=== PATIENT | female | born 1975 | race Caucasian/White ===

== ENCOUNTER 2017-10-15 04:00 | Emergency (ER) | payer OTHER ==
[~2017-10-15] VITALS: Ht 154.9 cm; Wt 98.1 kg
[~2017-10-15 04:00] MED LIST: ALBU0.099 IH
[2017-10-15 04:06] VITALS: BP 118/77
--- NOTE | 2017-10-15 04:13 | NUR ---
TO ER BED 11
--- NOTE | 2017-10-15 04:16 | NUR ---
Pt came to ED c/o severe headache. Pt states she has a Hx of migranes. Pt woke up at 0100 with severe CAM[place]O, N/V, and sevsitvity to light. VSS. No N/V at this time. Pt in bed in POC. ER MD aware. Continue to monitor.
[2017-10-15] MEDS ORDERED: diphenhydrAMINE 50 MG/ML VIAL IM ONE (04:20)
[2017-10-15] MEDS ORDERED: PROCHLORPERAZINE 10 MG/2 ML VIAL IM ONE (04:20)
--- NOTE | 2017-10-15 04:40 | NUR ---
Pt escorted to CT via wheel chair and Tech
--- NOTE | 2017-10-15 04:52 | NUR ---
Pt returned from CT
[2017-10-15] MEDS ORDERED: HYDROmorphone PFS 2 MG/ML SYR IM ONE ×2 (05:25→05:50)
--- NOTE | 2017-10-15 05:36 | NUR ---
Pt continues to c/o 10/10 headache pain. Dilaudid administered per Dr Damon's orders. Pt in bed in poc with HOB elevated. Father at bedside for support. VSS. Continue to monitor.
--- NOTE | 2017-10-15 05:51 | NUR ---
Pt states pain has diminished to 6/10. Dr Damon at bedside. Continue to monitor.
[2017-10-15 06:16] VITALS: BP 112/66
--- NOTE | 2017-10-15 06:16 | NUR ---
Patient discharged with v/s stable with pain reduced. Pt denies light sensitivity and no N/V. Written and verbal after care instructions given and explained. Patient alert, oriented and verbalized understanding of instructions. Ambulatory with steady gait. All questions addressed prior to discharge. ID band removed. Patient advised to follow up with PMD. Rx of Zofran and [place] 5-325mg given. Patient educated on indication of medication including possible reaction and side effects. Opportunity to ask questions provided and answered.
--- NOTE | 2017-10-15 06:16 | NUR ---
Pt states pain has reduced to 4/10 and tolerable.
== END 2017-10-15 06:16 | disposition home or self-care (01) ==
LOC: MED 04:00
DX: G43.909 Migraine, unspecified, not intractable, without status migrainosus (principal); J45.909 Unspecified asthma, uncomplicated; Z79.899 Other long term (current) drug therapy; Z88.5 Allergy status to narcotic agent
CPT/HCPCS: 70450; 81025; 96372; 99284; J0780; J1170; J1200

== ENCOUNTER 2018-08-08 06:30 | Emergency (ER) | payer OTHER ==
[~2018-08-08] VITALS: Ht 152.4 cm; Wt 98.4 kg
[2018-08-08 06:41] VITALS: BP 108/67
[2018-08-08] MEDS: diphenhydrAMINE 50 MG/ML VIAL IM ONE (07:17)
[2018-08-08] MEDS: PROCHLORPERAZINE 10 MG/2 ML VIAL IM ONE (07:18)
[2018-08-08 08:06] VITALS: BP 108/67
== END 2018-08-08 08:07 | disposition home or self-care (01) ==
LOC: MED 06:30
DX: G43.909 Migraine, unspecified, not intractable, without status migrainosus (principal); Z88.5 Allergy status to narcotic agent; Z79.899 Other long term (current) drug therapy; J45.909 Unspecified asthma, uncomplicated
CPT/HCPCS: 81002; 81025; 96372; 99283; J0780; J1200

== ENCOUNTER 2018-11-22 20:47 | Emergency (ER) | payer OTHER ==
[~2018-11-22] VITALS: Ht 152.4 cm; Wt 97.1 kg
[2018-11-22 20:55] VITALS: BP 108/65
--- NOTE | 2018-11-22 22:43 | NUR ---
PT BROUGHT TO BED 12.
--- NOTE | 2018-11-22 22:43 | NUR ---
PT PRESENTS TO ED WITH C/O COUGH X 2 WEEKS. NON-PRODUCTIVE COUGH NOTED WITH DIMINSHED BREATH SOUNDS. PT C/O PAIN 8/10. PT SITTING IN BED, BEDRAILS UP X 2, MD MADE AWARE.
--- NOTE | 2018-11-23 00:12 | NUR ---
Patient discharged with v/s stable. Written and verbal after care instructions given and explained. Patient alert, oriented and verbalized understanding of instructions. Ambulatory with steady gait. All questions addressed prior to discharge. ID band removed. Patient advised to follow up with PMD. Rx of Azithromycin (Z-Kelvin) given. Patient educated on indication of medication including possible reaction and side effects. Opportunity to ask questions provided and answered.
[2018-11-23 00:18] VITALS: BP 110/62
== END 2018-11-23 00:12 | disposition home or self-care (01) ==
LOC: MED 20:47
DX: J40 Bronchitis, not specified as acute or chronic (principal); J45.909 Unspecified asthma, uncomplicated; Z88.5 Allergy status to narcotic agent; Z79.899 Other long term (current) drug therapy
CPT/HCPCS: 71045; 81002; 81025; 99283; Q0092

== ENCOUNTER 2019-02-17 19:38 | Emergency (ER) | payer OTHER ==
[~2019-02-17] VITALS: Ht 152.4 cm; Wt 96.6 kg
[2019-02-17 19:48] VITALS: BP 121/74
--- NOTE | 2019-02-17 19:59 | NUR ---
PT AMBULATED BACK TO THE LOBBY, ERANS
--- NOTE | 2019-02-17 20:11 | NUR ---
Pt taken to bed 11.
--- NOTE | 2019-02-17 20:28 | NUR ---
43 Y/O F PRESENTED TO ED WITH C/O HEADACHE X1 DAY. PER PT "I SUFFER FROM MIGRAINES BUT THIS ISNT THE SAME." GENERALIZED HEADACHE. 10/10 PAIN, POUNDING TO R SIDE MORE THAN L SIDE. C/O R SIDE FACIAL NUMBNESS. +N/V. NO VISION CHANGES. AAOX4. SPEECH CLEAR AND COMPREHENSIBLE. GCS 15. BEHAVIOR CALM AND APPROPIATE. ERMD NOTIFIED. WILL CONTINUE TO MONITOR.
[2019-02-17] MEDS ORDERED: ONDANSETRON 4 MG TAB PO ONE (21:40)
[2019-02-17] MEDS ORDERED: NACL 0.9% 1,000 ML IV ONE (21:40)
[2019-02-17] MEDS ORDERED: LIDOCAINE/EPI 1% 1:100000 20 ML VIAL INJ ONE (21:55)
[2019-02-17 22:05] LABS: BASOPHILS # (AUTO) 0.1 K/uL (0.00-0.22); BASOPHILS % (AUTO) 0.7 % (0.0-2.0); EOSINOPHILS # (AUTO) 0.1 K/uL (0-0.4); EOSINOPHILS % (AUTO) 1.3 % (0.0-4.0); HEMATOCRIT 36.9 % (36-48); HEMOGLOBIN 12.6 g/dL (12.0-16.0); LYMPHOCYTES # (AUTO) 1.5 K/uL (2.5-16.5); LYMPHOCYTES % (AUTO) 21.2 % (20.5-51.1); MEAN CORPUSCULAR HEMOGLOBIN 32 pg (27-31); MEAN CORPUSCULAR HGB CONC 34 g/dL (33-37); MEAN CORPUSCULAR VOLUME 93.3 fL (80-94); MONOCYTES # (AUTO) 0.6 K/uL (0.8-1.0); NEUTROPHILS # (AUTO) 4.9 K/uL (1.8-7.7); NEUTROPHILS % (AUTO) 67.8 % (42.2-75.2); PLATELET COUNT (AUTO) 320 K/uL (140-450); RED BLOOD CELL COUNT(AUTO) 3.96 MIL/uL (4.20-5.40); RED CELL DISTRIBUTION WIDTH 13.1 % (11.6-13.7); WHITE BLOOD COUNT (AUTO) 7.2 K/uL (4.8-10.8)
--- NOTE | 2019-02-17 22:06 | NUR ---
PT DRYHEAVING AND HYPERVENTILATING. PT STATED "ITS HARD TO BREATHE". O2 SATURATION AT 93%. O2 THERAPY INITATED. PT PLACED ON 2L O2 VIA NASAL CANNULA, O2 SATURATION AT 96%. WILL CONTINUE TO MONITOR.
[2019-02-17 22:12] LABS: ANION GAP 14.8 (8-16); CREATININE 1.3 mg/dL (0.6-1.3); POTASSIUM 3.8 mmol/L (3.5-5.1)
[2019-02-17 22:16] LABS: PROTHROMBIN TIME 9.6 secs (10.8-13.4)
[2019-02-17 22:17] LABS: ALBUMIN 4.1 g/dL (3.4-5.0); TOTAL BILIRUBIN 0.5 mg/dL (0.0-1.0)
--- NOTE | 2019-02-17 22:20 | NUR ---
PT CONTINOUS TO HAVE HEADACHE. [address] QURESHI MADE AWARE.
--- NOTE | 2019-02-17 22:25 | NUR ---
PT TAKEN TO CT
[2019-02-17] MEDS ORDERED: MORPHINE SULFATE 4 MG/ML SYR IVP ONE (22:45)
[2019-02-17] MEDS ORDERED: ONDANSETRON 4 MG/2 ML VIAL IVP ONE (23:25)
[2019-02-17] MEDS ORDERED: LORazepam 2 MG/ML VIAL IVP ONE (23:25)
[2019-02-17] MEDS ORDERED: MECLIZINE 25 MG TAB PO ONE (23:25)
--- NOTE | 2019-02-18 00:09 | NUR ---
LUMBR PUNCTURE PROCEDURE PERFORMED AT THIS TIME
--- NOTE | 2019-02-18 00:34 | NUR ---
LUMBAR PUNCTURE WAS DONE UNSUCCESSFUL, BY DR. DEGROOT
[2019-02-18] MEDS ORDERED: METOCLOPRAMIDE 10 MG/2 ML INJ VIAL IVP ONE (00:35)
[2019-02-18] MEDS ORDERED: diphenhydrAMINE 50 MG/ML VIAL IVP ONE (00:35)
--- NOTE | 2019-02-18 00:50 | NUR ---
PT AWAKE. VSS AT THIS TIME. HOB ELEVATED FOR COMFORT. FAMILY AT BEDSIDE. WILL CONTINUE TO MONITOR.
--- NOTE | 2019-02-18 02:20 | NUR ---
PT TAKEN TO CT VIA W/C
[2019-02-18] MEDS ORDERED: IBUP-1842 PO (03:12)
[2019-02-18] MEDS ORDERED: ESCI20TA PO (03:12)
--- NOTE | 2019-02-18 03:25 | NUR ---
PT BP TREDNING LOW. FIRST READING BP 89/46 AND REPEAT 82/52. DR. QURESHI MADE AWARE.
--- NOTE | 2019-02-18 05:25 | NUR ---
Patient discharged with v/s stable. Patient acting appropriatly, speaking in clear and complete sentences, states 0/10 pain at this time. Written and verbal after care instructions given and explained. Patient alert, oriented and verbalized understanding of instructions. Ambulatory with steady gait. All questions addressed prior to discharge. ID band removed. Patient advised to follow up with PMD. Rx of [place], and Reglan given. Patient educated on indication of medication including possible reaction and side effects. Opportunity to ask questions provided and answered.
[2019-02-18 05:36] VITALS: BP 97/46
== END 2019-02-18 05:25 | disposition home or self-care (01) ==
LOC: MED 19:38
DX: G43.909 Migraine, unspecified, not intractable, without status migrainosus (principal); R42 Dizziness and giddiness; R11.2 Nausea with vomiting, unspecified; J45.909 Unspecified asthma, uncomplicated; Z79.1 Long term (current) use of non-steroidal anti-inflammatories (NSAID); Z79.899 Other long term (current) drug therapy
CPT/HCPCS: 36415; 62270; 70450; 80053; 81025; 85025; 85610; 85730; 96361; 96374; 96375; 99285; J1200; J2001; J2060; J2270; J2405; J2765; J7030; J8597; Q0162; 99284

== ENCOUNTER 2020-04-15 07:00 | Emergency (ER) | payer OTHER ==
[~2020-04-15] VITALS: Ht 152.4 cm; Wt 93.9 kg
[~2020-04-15 07:00] MED LIST changes: -ALBU0.099 IH; +ESCI20TA PO; +IBUP-1842 PO
[2020-04-15 07:04] VITALS: BP 137/94
[2020-04-15] MEDS ORDERED: NACL 0.9% 1,000 ML IV SCH (07:27)
[2020-04-15] MEDS ORDERED: KETOROLAC 30 MG/ML VIAL IVP ONE (07:30)
[2020-04-15 08:29] LABS: BASOPHILS % (AUTO) 0.5 % (0.0-2.0); EOSINOPHILS # (AUTO) 0.1 K/uL (0-0.4); EOSINOPHILS % (AUTO) 1.2 % (0.0-4.0); HEMATOCRIT 39.6 % (36-48); HEMOGLOBIN 13.5 g/dL (12.0-16.0); LYMPHOCYTES # (AUTO) 1.2 K/uL (2.5-16.5); LYMPHOCYTES % (AUTO) 14.4 % (20.5-51.1); MEAN CORPUSCULAR HEMOGLOBIN 32 pg (27-31); MEAN CORPUSCULAR HGB CONC 34 g/dL (33-37); MEAN CORPUSCULAR VOLUME 95.3 fL (80-94); MONOCYTES # (AUTO) 0.6 K/uL (0.8-1.0); NEUTROPHILS # (AUTO) 6.6 K/uL (1.8-7.7); NEUTROPHILS % (AUTO) 76.9 % (42.2-75.2); PLATELET COUNT (AUTO) 313 K/uL (140-450); RED BLOOD CELL COUNT(AUTO) 4.15 MIL/uL (4.20-5.40); WHITE BLOOD COUNT (AUTO) 8.5 K/uL (4.8-10.8)
[2020-04-15 08:30] LABS: APPEARANCE,URINE SL CLOUDY (CLEAR); BILIRUBIN,URINE NEGATIVE (NEGATIVE); BLOOD, URINE 1+ (NEGATIVE); COLOR,URINE YELLOW (YELLOW); LEUKOCYTE ESTERASE ,URINE TRACE (NEGATIVE); NITRITE, URINE NEGATIVE (NEGATIVE); PH,URINE 6.5 (5.0-9.0); UGLUCOSE NEGATIVE (NEGATIVE)
[2020-04-15] MEDS ORDERED: MORPHINE SULFATE 4 MG/ML SYR IVP ONE (09:00)
[2020-04-15 09:22] LABS: WBC,URINE 0-5 /HPF (0-5)
[2020-04-15 09:51] LABS: ALBUMIN 3.7 g/dL (3.4-5.0); ANION GAP 14.1 (8-16); CARBON DIOXIDE 24.5 mmol/L (21-32); CREATININE 0.9 mg/dL (0.6-1.3); POTASSIUM 3.6 mmol/L (3.5-5.1); TOTAL BILIRUBIN 0.5 mg/dL (0.0-1.0)
[2020-04-15 10:08] VITALS: BP 96/67
== END 2020-04-15 10:03 | disposition home or self-care (01) ==
LOC: MED 07:00
DX: K57.92 Diverticulitis of intestine, part unspecified, without perforation or abscess without bleeding (principal); J45.909 Unspecified asthma, uncomplicated; Z88.5 Allergy status to narcotic agent; Z98.890 Other specified postprocedural states; Z90.49 Acquired absence of other specified parts of digestive tract
CPT/HCPCS: 36415; 74176; 80053; 81001; 81025; 83690; 85025; 96361; 96374; 96375; 99284; J1885; J2270; J7030

== ENCOUNTER 2020-10-20 09:49 | Emergency (ER) | payer OTHER ==
[~2020-10-20] VITALS: Ht 152.4 cm; Wt 91.2 kg
[~2020-10-20 09:49] MED LIST changes: +ACET-1182 PO; -IBUP-1842 PO; +LACT1CAP59 PO; +LEVO750T2 PO; +METR-520 PO
[2020-10-20 09:52] VITALS: BP 98/69
[2020-10-20] MEDS ORDERED: ONDANSETRON 4 MG/2 ML VIAL IVP ONE (10:10)
[2020-10-20] MEDS ORDERED: MORPHINE SULFATE 4 MG/ML SYR IVP ONE (10:10)
[2020-10-20] MEDS ORDERED: NACL 0.9% 1,000 ML IV ONE (10:10)
[2020-10-20 10:45] LABS: BASOPHILS % (AUTO) 0.8 % (0.0-2.0); EOSINOPHILS # (AUTO) 0.1 K/uL (0-0.4); EOSINOPHILS % (AUTO) 2.6 % (0.0-4.0); HEMATOCRIT 37.2 % (36-48); HEMOGLOBIN 12.6 g/dL (12.0-16.0); LYMPHOCYTES # (AUTO) 1.7 K/uL (2.5-16.5); LYMPHOCYTES % (AUTO) 32.4 % (20.5-51.1); MEAN CORPUSCULAR HEMOGLOBIN 32 pg (27-31); MEAN CORPUSCULAR HGB CONC 34 g/dL (33-37); MEAN CORPUSCULAR VOLUME 94.4 fL (80-94); MONOCYTES # (AUTO) 0.3 K/uL (0.8-1.0); MONOCYTES % (AUTO) 5.3 % (1.7-9.3); NEUTROPHILS # (AUTO) 3.1 K/uL (1.8-7.7); NEUTROPHILS % (AUTO) 58.9 % (42.2-75.2); PLATELET COUNT (AUTO) 467 K/uL (140-450); RED BLOOD CELL COUNT(AUTO) 3.94 MIL/uL (4.20-5.40); RED CELL DISTRIBUTION WIDTH 12.6 % (11.6-13.7); WHITE BLOOD COUNT (AUTO) 5.2 K/uL (4.8-10.8)
[2020-10-20 11:01] LABS: ALBUMIN 3.8 g/dL (3.4-5.0); ANION GAP 11.7 (8-16); CARBON DIOXIDE 26.8 mmol/L (21-32); CREATININE 0.9 mg/dL (0.6-1.3); POTASSIUM 4.5 mmol/L (3.5-5.1); TOTAL BILIRUBIN 0.3 mg/dL (0.0-1.0)
--- NOTE | 2020-10-20 12:13 | NUR ---
Patient taken to CT via maty
[2020-10-20 14:33] VITALS: BP 105/68
--- NOTE | 2020-10-20 14:34 | NUR ---
Patient discharged with v/s stable. Written and verbal after care instructions given and explained. Patient alert, oriented and verbalized understanding of instructions. Ambulatory with steady gait. All questions addressed prior to discharge. ID band removed. Patient advised to follow up with PMD. Rx of MORPHINE , CEPHALEXIN given. Patient educated on indication of medication including possible reaction and side effects. Opportunity to ask questions provided and answered.
--- NOTE | 2020-10-21 20:47 | NUR ---
LATE ENTRY- 0.9% NS BOLUS DISCONTINUED AT 1130
== END 2020-10-20 14:34 | disposition home or self-care (01) ==
LOC: MED 09:49
DX: R10.31 Right lower quadrant pain (principal); R11.0 Nausea; R07.2 Precordial pain; J45.909 Unspecified asthma, uncomplicated; Z79.899 Other long term (current) drug therapy; Z88.5 Allergy status to narcotic agent
CPT/HCPCS: 36415; 71045; 74177; 80053; 81002; 81025; 84484; 85025; 93005; 96361; 96374; 96375; 99285; J2270; J2405; J7030; Q9967

== ENCOUNTER 2020-10-21 10:38 | Emergency (ER) | payer OTHER ==
[~2020-10-21] VITALS: Ht 152.4 cm; Wt 91.2 kg
[2020-10-21 10:46] VITALS: BP 107/79
[2020-10-21] MEDS ORDERED: ONDANSETRON 4 MG ODT PO ONE (11:25)
--- NOTE | 2020-10-21 11:47 | NUR ---
Patient discharged with v/s stable, AAOX4, IN NAD. Written and verbal after care instructions given and explained. Patient alert, oriented and verbalized understanding of instructions. Ambulatory with steady gait. All questions addressed prior to discharge. ID band removed, NO IV ACCESS THIS VISIT. Patient advised to follow up with PMD. Rx of ZOFRAN given. Patient educated on indication of medication including possible reaction and side effects. Opportunity to ask questions provided and answered.
== END 2020-10-21 11:47 | disposition home or self-care (01) ==
LOC: MED 10:38
DX: T81.89XA Other complications of procedures, not elsewhere classified, initial encounter (principal); J45.909 Unspecified asthma, uncomplicated; Z88.5 Allergy status to narcotic agent; Z79.899 Other long term (current) drug therapy
CPT/HCPCS: 81002; 93005; 99283; Q0162

== ENCOUNTER 2020-11-03 05:40 | Emergency (ER) | payer OTHER ==
[~2020-11-03] VITALS: Ht 152.4 cm; Wt 90.7 kg
[2020-11-03 05:48] VITALS: BP 104/66
[2020-11-03] MEDS ORDERED: ONDANSETRON 4 MG/2 ML VIAL IVP ONE ×2 (06:20→06:50)
[2020-11-03] MEDS ORDERED: DICYCLOMINE HCL LIQUID 20 MG, ALUMINUM HYD/MAG/SIMETHICONE 30 ML, LIDOCAINE VISCOUS 2% ... PO ONE ×3 (06:20)
[2020-11-03] MEDS ORDERED: LIDOCAINE VISCOUS 2% 20 ML UDC ONE (06:23)
[2020-11-03] MEDS ORDERED: ALUMINUM HYD/MAG/SIMETHICONE 30 ML UDC ONE (06:24)
[2020-11-03] MEDS ORDERED: DICYCLOMINE HCL LIQUID 10 MG/5 ML UDC ONE (06:24)
--- NOTE | 2020-11-03 06:46 | NUR ---
PT COMING IN WITH C/O SEVERE ABD PAIN TO EPIGASTRIC AREA; BURNING, STABBING 10/10 PAIN. HAS VOMITED X 5 OVER THE PAST HOUR. DENIES ANY DIARRHEA. ABD TENDER UPON PALPATION. PT AFEBRILE. PT PLACED IN GOWN, BED IN LOWEST POSITION AND SIDERAIL UP X 1. ALLERGY - CODEINE
[2020-11-03] MEDS ORDERED: MORPHINE SULFATE 4 MG/ML SYR ONE (06:48)
[2020-11-03] MEDS ORDERED: MORPHINE SULFATE 4 MG/ML SYR IVP ONE (06:50)
[2020-11-03] MEDS ORDERED: LORazepam 2 MG/ML VIAL IVP ONE (07:05)
--- NOTE | 2020-11-03 07:13 | NUR ---
Pt report given to RC HERNANDEZ. Transfer of care at this time.
[2020-11-03 07:20] LABS: BASOPHILS % (AUTO) 0.6 % (0.0-2.0); EOSINOPHILS # (AUTO) 0.1 K/uL (0-0.4); EOSINOPHILS % (AUTO) 1.5 % (0.0-4.0); HEMATOCRIT 38.5 % (36-48); HEMOGLOBIN 12.9 g/dL (12.0-16.0); LYMPHOCYTES # (AUTO) 2.1 K/uL (2.5-16.5); LYMPHOCYTES % (AUTO) 38.4 % (20.5-51.1); MEAN CORPUSCULAR HEMOGLOBIN 32 pg (27-31); MEAN CORPUSCULAR HGB CONC 34 g/dL (33-37); MEAN CORPUSCULAR VOLUME 94.4 fL (80-94); MONOCYTES # (AUTO) 0.4 K/uL (0.8-1.0); MONOCYTES % (AUTO) 8.2 % (1.7-9.3); NEUTROPHILS # (AUTO) 2.8 K/uL (1.8-7.7); NEUTROPHILS % (AUTO) 51.3 % (42.2-75.2); PLATELET COUNT (AUTO) 328 K/uL (140-450); RED BLOOD CELL COUNT(AUTO) 4.08 MIL/uL (4.20-5.40); RED CELL DISTRIBUTION WIDTH 13.2 % (11.6-13.7); WHITE BLOOD COUNT (AUTO) 5.4 K/uL (4.8-10.8)
[2020-11-03 07:21] LABS: APPEARANCE,URINE HAZY (CLEAR); BILIRUBIN,URINE NEGATIVE (NEGATIVE); COLOR,URINE DARK YELLOW (YELLOW); LEUKOCYTE ESTERASE ,URINE NEGATIVE (NEGATIVE); NITRITE, URINE NEGATIVE (NEGATIVE); UGLUCOSE NEGATIVE (NEGATIVE)
--- NOTE | 2020-11-03 07:30 | NUR ---
45F PMH of anxiety, colon resection (1 month ago), appendectomy, cholescystectomy c/o nonradiating 06/19 burning upper epigastric pain x2 hours. Pt is resting semifowlers eyes open on gurney, crying. Denies fever, cough, SOB CP urinary/bowel issues at this time. Reports nausea with vomiting x5. Denies hematemesis, hematuria, dysuria, melena, diarrhea. A&O x3, speaks in full clear sentences, follows commands. no AMU, repirations E/U. MCCLELLAN. IV access is 22g R hand. pending lab results and further orders
[2020-11-03 07:33] LABS: ALBUMIN 4.3 g/dL (3.4-5.0); ANION GAP 16.6 (8-16); CREATININE 0.9 mg/dL (0.6-1.3); POTASSIUM 3.6 mmol/L (3.5-5.1); TOTAL BILIRUBIN 0.4 mg/dL (0.0-1.0)
[2020-11-03 07:47] LABS: BLOOD, URINE 1+ (NEGATIVE); RBC,URINE 0-5 /HPF (0-5)
[2020-11-03 07:48] LABS: WBC,URINE 0-5 /HPF (0-5)
[2020-11-03] MEDS ORDERED: METOCLOPRAMIDE 10 MG/2 ML INJ VIAL IVP ONE (08:15)
[2020-11-03] MEDS ORDERED: NACL 0.9% 1,000 ML IV ONE (08:30)
--- NOTE | 2020-11-03 09:41 | NUR ---
Pt resting semifowlers eyes closed arousable to voice. Pt looks relaxed at this time. Pt reports 8/10 upper epigastric burning pain at this time. Pt denies any CP at this time. Currently no SOB CP acute changes noted at this time. A&O x3, speaks in full clear sentences, follows commands. No AMU, respirations E/U. MCCLELLAN 22ga R hand patent, IV fluids running. Pt tolerated placement of ultrasound guided 18ga to Left upper arm well Pending Ct, repeat trop and further orders
--- NOTE | 2020-11-03 09:55 | NUR ---
Lab called for aracelis cedeño
--- NOTE | 2020-11-03 10:03 | NUR ---
Lab at bedside for blood draw.
[2020-11-03 11:39] VITALS: BP 112/55
--- NOTE | 2020-11-03 11:40 | NUR ---
Pt resting comfortably eyes closed arousable to voice. Reports 8/10 epigastric pain at this time. Denies SOB CP at this time. A&O x3, speaks in full clear sentences, follows commands. No AMU, respirations E/U. MCCLELLAN Pt ambulated to bathroom with steady gait. Pending CT and further orders
--- NOTE | 2020-11-03 13:18 | NUR ---
Patient discharged with v/s stable. Both IV's removed. No new Rx. Written and verbal after care instructions given and explained. Patient verbalized understanding. Ambulatory with steady gait. All questions addressed prior to discharge. Advised to follow up with PMD. No belnongings to be returned. Pt took all personal belongings with her
--- NOTE | 2020-11-04 20:01 | NUR ---
LATE ENTRY-- 0.9% NS INFUSION ENDED AT 1000
== END 2020-11-03 13:18 | disposition home or self-care (01) ==
LOC: MED 05:40
DX: R10.13 Epigastric pain (principal); R11.2 Nausea with vomiting, unspecified; J45.909 Unspecified asthma, uncomplicated; Z88.5 Allergy status to narcotic agent; Z79.899 Other long term (current) drug therapy
CPT/HCPCS: 36415; 71045; 74177; 80053; 81001; 83690; 84484; 85025; 85379; 93005; 96361; 96374; 96375; 96376; 99285; J2060; J2270; J2405; J2765; Q9967

== ENCOUNTER 2021-05-15 10:25 | Emergency (ER) | payer OTHER ==
[~2021-05-15] VITALS: Ht 152.4 cm; Wt 97.1 kg
[2021-05-15 10:44] VITALS: BP 92/59
--- NOTE | 2021-05-15 10:50 | NUR ---
45yo f c/o abdominal pain, vomiting, headache and dizziness since 8am this morning. abdominal pain 8/10 burning. pt reports 7 episodes of vomiting today. pt took sumatriptan 2 hours ago for headache which provided no relief. in ed, pt hypotensive. pt with active coffee-ground emesis. abdomen soft, nontender. ermd made aware of pt status. pmh: asthma, migraine, anxiety, depression meds: ventolin, lexapro allergy: codeine
[2021-05-15] MEDS ORDERED: diphenhydrAMINE 50 MG/ML VIAL IVP ONE (11:55)
[2021-05-15] MEDS ORDERED: MORPHINE SULFATE 4 MG/ML SYR IVP ONE ×2 (11:55→15:10)
[2021-05-15] MEDS ORDERED: METOCLOPRAMIDE 10 MG/2 ML INJ VIAL IVP ONE (11:55)
--- NOTE | 2021-05-15 12:19 | NUR ---
PT TAKEN TO CT VIA [place].
[2021-05-15 12:24] LABS: APPEARANCE,URINE CLEAR (CLEAR); BILIRUBIN,URINE NEGATIVE (NEGATIVE); BLOOD, URINE 1+ (NEGATIVE); COLOR,URINE YELLOW (YELLOW); LEUKOCYTE ESTERASE ,URINE NEGATIVE (NEGATIVE); NITRITE, URINE NEGATIVE (NEGATIVE); UGLUCOSE NEGATIVE (NEGATIVE)
--- NOTE | 2021-05-15 12:27 | NUR ---
PT RETURNED FROM CT SCAN
[2021-05-15 12:38] LABS: RBC,URINE 0-5 /HPF (0-5); WBC,URINE 0-5 /HPF (0-5)
[2021-05-15 14:03] LABS: BASOPHILS % (AUTO) 0.5 % (0.0-2.0); EOSINOPHILS % (AUTO) 0.1 % (0.0-4.0); HEMATOCRIT 34.2 % (36-48); HEMOGLOBIN 11.7 g/dL (12.0-16.0); LYMPHOCYTES # (AUTO) 0.8 K/uL (2.5-16.5); LYMPHOCYTES % (AUTO) 11.9 % (20.5-51.1); MEAN CORPUSCULAR HEMOGLOBIN 33 pg (27-31); MEAN CORPUSCULAR HGB CONC 34 g/dL (33-37); MEAN CORPUSCULAR VOLUME 95.1 fL (80-94); MONOCYTES # (AUTO) 0.2 K/uL (0.8-1.0); MONOCYTES % (AUTO) 2.5 % (1.7-9.3); NEUTROPHILS # (AUTO) 5.5 K/uL (1.8-7.7); PLATELET COUNT (AUTO) 360 K/uL (140-450); RED CELL DISTRIBUTION WIDTH 12.6 % (11.6-13.7); WHITE BLOOD COUNT (AUTO) 6.5 K/uL (4.8-10.8)
[2021-05-15 14:21] LABS: ALBUMIN 3.7 g/dL (3.4-5.0); ANION GAP 11.7 (8-16); CARBON DIOXIDE 26.4 mmol/L (21-32); CREATININE 0.9 mg/dL (0.6-1.3); POTASSIUM 4.1 mmol/L (3.5-5.1); TOTAL BILIRUBIN 0.2 mg/dL (0.0-1.0)
[2021-05-15] MEDS ORDERED: ACET-10509 PO (14:41)
[2021-05-15] MEDS ORDERED: KETOROLAC 15 MG/ML VIAL IVP ONE (15:10)
[2021-05-15 16:34] VITALS: BP 118/76
--- NOTE | 2021-05-15 16:34 | NUR ---
Patient discharged with v/s stable. Written and verbal after care instructions given and explained. Patient alert, oriented and verbalized understanding of instructions. Ambulatory with steady gait. All questions addressed prior to discharge. ID band removed. Patient advised to follow up with PMD. Rx of TYLENOL EXTRA STRENGTH given. Patient educated on indication of medication including possible reaction and side effects. Opportunity to ask questions provided and answered.
== END 2021-05-15 16:34 | disposition home or self-care (01) ==
LOC: MED 10:25
DX: R51.9 Headache, unspecified (principal); R11.2 Nausea with vomiting, unspecified; R10.9 Unspecified abdominal pain; R42 Dizziness and giddiness; F41.9 Anxiety disorder, unspecified; F32.9 Major depressive disorder, single episode, unspecified; G43.909 Migraine, unspecified, not intractable, without status migrainosus; J45.909 Unspecified asthma, uncomplicated; Z88.5 Allergy status to narcotic agent; Z79.899 Other long term (current) drug therapy
CPT/HCPCS: 36415; 74176; 80053; 81001; 81025; 83690; 85025; 96374; 96375; 96376; 99284; J1200; J1885; J2270; J2765

== ENCOUNTER 2021-08-29 09:16 | Emergency (ER) | payer OTHER ==
[~2021-08-29] VITALS: Ht 152.4 cm; Wt 93.0 kg
[~2021-08-29 09:16] MED LIST changes: +ACET-10509 PO
[2021-08-29 09:27] VITALS: BP 114/77
--- NOTE | 2021-08-29 10:26 | NUR ---
Pt ambulated to bed 02.
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
[2021-08-29] MEDS ORDERED: MORPHINE SULFATE 4 MG/ML SYR IVP ONE (10:40)
[2021-08-29] MEDS ORDERED: METOCLOPRAMIDE 10 MG/2 ML INJ VIAL IVP ONE (10:40)
[2021-08-29 12:11] LABS: BASOPHILS % (AUTO) 0.7 % (0.0-2.0); EOSINOPHILS # (AUTO) 0.1 K/uL (0-0.4); EOSINOPHILS % (AUTO) 0.8 % (0.0-4.0); HEMATOCRIT 32.4 % (36-48); HEMOGLOBIN 11.1 g/dL (12.0-16.0); LYMPHOCYTES # (AUTO) 1.3 K/uL (2.5-16.5); LYMPHOCYTES % (AUTO) 18.8 % (20.5-51.1); MEAN CORPUSCULAR HEMOGLOBIN 32 pg (27-31); MEAN CORPUSCULAR HGB CONC 34 g/dL (33-37); MEAN CORPUSCULAR VOLUME 92.2 fL (80-94); MONOCYTES # (AUTO) 0.3 K/uL (0.8-1.0); MONOCYTES % (AUTO) 4.3 % (1.7-9.3); NEUTROPHILS # (AUTO) 5.2 K/uL (1.8-7.7); NEUTROPHILS % (AUTO) 75.4 % (42.2-75.2); PLATELET COUNT (AUTO) 284 K/uL (140-450); RED BLOOD CELL COUNT(AUTO) 3.52 MIL/uL (4.20-5.40); RED CELL DISTRIBUTION WIDTH 13.2 % (11.6-13.7); WHITE BLOOD COUNT (AUTO) 6.8 K/uL (4.8-10.8)
[2021-08-29 12:31] LABS: ALBUMIN 3.7 g/dL (3.4-5.0); BILIRUBIN,DIRECT 0.1 mg/dL (0.0-0.3); TOTAL BILIRUBIN 0.3 mg/dL (0.0-1.0)
[2021-08-29 12:47] LABS: ANION GAP 15.1 (8-16); CARBON DIOXIDE 24.8 mmol/L (21-32); CREATININE 0.7 mg/dL (0.6-1.3); POTASSIUM 3.9 mmol/L (3.5-5.1)
[2021-08-29] MEDS ORDERED: ONDANSETRON 4 MG/2 ML VIAL IVP ONE (13:00)
[2021-08-29] MEDS ORDERED: MORPHINE SULFATE 10 MG/ML VIAL IVP ONE (13:00)
[2021-08-29] MEDS ORDERED: ALUMINUM HYD/MAG/SIMETHICONE 30 ML UDC PO ONE (13:25)
[2021-08-29] MEDS ORDERED: FAMO-90 PO (13:58)
[2021-08-29 14:15] VITALS: BP 120/72
--- NOTE | 2021-08-29 14:16 | NUR ---
Patient discharged with v/s stable. Written and verbal after care instructions given and explained. Patient alert, oriented and verbalized understanding of instructions. Ambulatory with steady gait. All questions addressed prior to discharge. ID band removed. Patient advised to follow up with PMD. Rx of FAMOTIDINE given. Patient educated on indication of medication including possible reaction and side effects. Opportunity to ask questions provided and answered.
== END 2021-08-29 14:16 | disposition home or self-care (01) ==
LOC: MED 09:16
DX: K21.9 Gastro-esophageal reflux disease without esophagitis (principal); K92.0 Hematemesis; J45.909 Unspecified asthma, uncomplicated; Z88.5 Allergy status to narcotic agent; Z90.49 Acquired absence of other specified parts of digestive tract
CPT/HCPCS: 36415; 71045; 74176; 80048; 80076; 81002; 81025; 83690; 84484; 85025; 86886; 86900; 86901; 93005; 96374; 96375; 96376; 99285; J2270; J2405; J2765; Q0092

== ENCOUNTER 2021-09-13 23:19 | Emergency (ER) | payer OTHER ==
[~2021-09-13] VITALS: Ht 152.4 cm; Wt 93.4 kg
[~2021-09-13 23:19] MED LIST changes: +FAMO-90 PO
[2021-09-13 23:42] VITALS: BP 91/67
--- NOTE | 2021-09-13 23:48 | NUR ---
PT AMBULATED TO LOBBY. PROVIDED URINE CUP
[2021-09-14] MEDS ORDERED: KETOROLAC 60 MG/2 ML VIAL IM ONE (00:10)
[2021-09-14] MEDS ORDERED: ONDANSETRON 4 MG ODT PO ONE (00:10)
[2021-09-14] MEDS ORDERED: LOPE-289 PO (00:15)
[2021-09-14] MEDS ORDERED: ONDA8TAB87 PO (00:15)
[2021-09-14] MEDS ORDERED: IBUP-2213 PO (00:15)
--- NOTE | 2021-09-14 00:30 | NUR ---
Patient discharged with v/s stable. Written and verbal after care instructions given and explained. Patient alert, oriented and verbalized understanding of instructions. Ambulatory with steady gait. All questions addressed prior to discharge. ID band removed. Patient advised to follow up with PMD. Rx of MOTRIN, LOPERAMIDE, AND ZOFRAN given. Patient educated on indication of medication including possible reaction and side effects. Opportunity to ask questions provided and answered.
== END 2021-09-14 00:30 | disposition home or self-care (01) ==
LOC: MED 23:19
DX: R10.13 Epigastric pain (principal); R11.2 Nausea with vomiting, unspecified; R19.7 Diarrhea, unspecified; J45.909 Unspecified asthma, uncomplicated; Z88.5 Allergy status to narcotic agent; Z79.899 Other long term (current) drug therapy; Z98.890 Other specified postprocedural states
CPT/HCPCS: 81002; 81025; 96372; 99283; J1885; Q0162

== ENCOUNTER 2022-01-15 12:58 | Inpatient (IN) | payer OTHER ==
[~2022-01-15] VITALS: Ht 152.4 cm; Wt 92.5 kg
[~2022-01-15 12:58] MED LIST changes: +IBUP-2213 PO; +LOPE-289 PO; +ONDA8TAB87 PO
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
[2022-01-15 13:06] VITALS: BP 128/83
--- NOTE | 2022-01-15 13:15 | NUR ---
DR TROY AT BEDSIDE EVALUATING PT
[2022-01-15] MEDS ORDERED: METOCLOPRAMIDE 10 MG/2 ML INJ VIAL IVP ONE (13:25)
[2022-01-15] MEDS ORDERED: ASPIRIN 81 MG TAB.CHEW PO ONE (13:25)
[2022-01-15] MEDS ORDERED: NITROGLYCERIN 0.4 MG TAB SL ONE (14:15)
--- NOTE | 2022-01-15 14:25 | NUR ---
PT TAKEN TO CT VIA WHEELCHAIR
[2022-01-15 14:31] LABS: HEMOGLOBIN 12.7 g/dL (12.0-16.0); MEAN CORPUSCULAR HEMOGLOBIN 31 pg (27-31); MEAN CORPUSCULAR HGB CONC 33 g/dL (33-37); MEAN CORPUSCULAR VOLUME 94.1 fL (80-94); PLATELET COUNT (AUTO) 212 K/uL (140-450); RED BLOOD CELL COUNT(AUTO) 4.04 MIL/uL (4.20-5.40); RED CELL DISTRIBUTION WIDTH 15.1 % (11.6-13.7); WHITE BLOOD COUNT (AUTO) 7.7 K/uL (4.8-10.8)
--- NOTE | 2022-01-15 14:33 | NUR ---
PT BACK FROM CT AND CONNECTED TO MONITOR
[2022-01-15 14:52] LABS: BASOPHILS % (MANUAL) 0 % (0-2); EOSINOPHILS % (MANUAL) 0 % (0-4); LYMPHOCYTES % (MANUAL) 26 % (20-46); MONOCYTES % (MANUAL) 2 % (5-12)
[2022-01-15 15:05] LABS: ALBUMIN 3.6 g/dL (3.4-5.0); ANION GAP 15.6 (8-16); ASPARTATE AMINOTRANSFERASE 39 U/L (15-37); CARBON DIOXIDE 21.5 mmol/L (21-32); CHLORIDE 110 mmol/L (98-107); CREATININE 0.7 mg/dL (0.6-1.3); GFR ARICAN-AMERICAN 115 mL/min (>90); GLUCOSE 104 mg/dL (74-106); MAGNESIUM 2.2 mg/dL (1.8-2.4); PHOSPHORUS 3.1 mg/dL (2.5-4.9); POTASSIUM 4.1 mmol/L (3.5-5.1); SODIUM SERUM 143 mmol/L (136-145); TOTAL BILIRUBIN 0.3 mg/dL (0.0-1.0); UREA NITROGEN, BLOOD 14 mg/dL (7-18)
--- NOTE | 2022-01-15 15:28 | NUR ---
Patient moved via gurney to bed 11.
--- NOTE | 2022-01-15 15:32 | NUR ---
PT REPORTS THAT CHEST PAIN RETURNED, DR TROY MADE AWARE
[2022-01-15] MEDS ORDERED: MORPHINE SULFATE 4 MG/ML SYR IVP ONE (15:35)
[2022-01-15] MEDS ORDERED: ONDANSETRON 4 MG/2 ML VIAL IVP ONE (15:35)
[2022-01-15] MEDS: NITROGLYCERIN 0.4 MG TAB SL PRN ×3 (15:47→15:55)
[2022-01-15] MEDS ORDERED: GABA400C PO (16:05)
[2022-01-15] MEDS ORDERED: BACL10TA4 PO (16:09)
[2022-01-15] MEDS ORDERED: NACL 0.9% 1,000 ML IV ONE (16:10)
[2022-01-15] MEDS ORDERED: CEPH-588 PO (16:14)
[2022-01-15] MEDS ORDERED: ACET-8386 PO (16:19)
[2022-01-15] MEDS ORDERED: diphenhydrAMINE 50 MG/ML VIAL IVP ONE (16:20)
[2022-01-15] MEDS ORDERED: MAG SULF 2000 MG/WATER PREMIX 50 ML IV PRN (16:30)
[2022-01-15] MEDS ORDERED: POTASSIUM CHLORIDE 10 MEQ TABER PO PRN (16:30)
[2022-01-15] MEDS ORDERED: MAGNESIUM OXIDE 400 MG TAB PO PRN (16:30)
[2022-01-15] MEDS ORDERED: ACETAMINOPHEN 325 MG TAB PO PRN (16:30)
[2022-01-15] MEDS ORDERED: IBUPROFEN 400 MG TAB PO PRN (16:30)
[2022-01-15] MEDS ORDERED: KCL 20 MEQ/WATER INJ PREMIX 200 ML IV PRN (16:30)
--- NOTE | 2022-01-15 17:19 | NUR ---
Patient will be admitted to care of [facility]. Admited to TELEMETRY. Will go to room 106B. Belongings list completed. Report to IMTIAZ.
[2022-01-15 18:56] VITALS: BP 113/78
--- NOTE | 2022-01-15 19:05 | NUR ---
RECEIVED ENDORSEMENT FROM DAVID KITCHEN FOR CONTINUITY OF CARE. PATIENT IS AWAKE AND STABLE. A&OX4. VERBALLY RESPONSIVE AND ABLE TO COMMUNICATE NEEDS. ON ROOM AIR WITH NO APPARENT S/SX OF ACUTE DISTRESS. RESPIRATIONS EVEN AND UNLABORED WITH NO APPARENT S/SX OF ACUTE DISTRESS. AMBULATORY AND SKIN IS INTACT. CONTINENT OF VOID AND BM. IV SITE TO THE RAC 20G PATENT/INTACT SL. PLAN OF CARE AND WHITE COMMUNICATION BOARD UPDATED. ALL SAFETY MEASURES IN PLACE. CALL LIGHT WITHIN REACH. WILL CONTINUE TO MONITOR.
[2022-01-15 20:00] VITALS: BP 92/56
--- NOTE | 2022-01-15 20:00 | NUR ---
Patient's Plan of Care was discussed and reviewed with PHILLIP WOODS.
[2022-01-15] MEDS: CHLORHEXADINE GLUC 2% CLOTH TP SCH (21:00)
--- NOTE | 2022-01-15 21:05 | NUR ---
ADMINISTERED SCHEDULED PO MEDS PER MD ORDER. TOLERATED WELL. DENIES PAIN. RESPIRATIONS EVEN AND UNLABORED WITH NO APPARENT S/SX OF ACUTE DISTRESS. WHITE COMMUNICATION BOARD UPDATED. ALL SAFETY MEASURES IN PLACE. CALL LIGHT WITHIN REACH. WILL CONTINUE TO MONITOR.
[2022-01-15] MEDS: ZOLPIDEM 5 MG TAB PO PRN (21:20)
[2022-01-15 21:43] LABS: PROTHROMBIN TIME 9.3 secs (10.8-13.4)
[2022-01-15] MEDS: KETOROLAC 15 MG/ML VIAL IVP PRN (21:53)
--- NOTE | 2022-01-15 22:30 | NUR ---
SPOKE WITH COPIER TECHNICIAN FRED. PER COPIER TECHNICIAN, CONSENT NEEDED FOR CT W CONTRAST. ADVISED COPIER TECHNICIAN THAT PHYSICAL SIGNATURE WILL CANNOT BE OBTAINED UNLESS TORB SIGNATURE IS ACCEPTABLE. PER COPIER TECHNICIAN, HE WILL FOLLOW UP LATER.
[2022-01-16] VITALS: BP 101/61
--- NOTE | 2022-01-16 01:00 | NUR ---
CHECKED PATIENT. PATIENT IS STABLE AND ASLEEP. CHEST IS RISING AND FALLING EVENLY. RESPIRATIONS EVEN AND UNLABORED WITH NO APPARENT S/SX OF ACUTE DISTRESS. WHITE COMMUNICATION BOARD UPDATED. ALL SAFETY MEASURES IN PLACE. CALL LIGHT WITHIN REACH. WILL CONTINUE TO MONITOR.
--- NOTE | 2022-01-16 03:20 | NUR ---
ROUNDED ON PATIENT. PATIENT IS STABLE AND ASLEEP. CHEST IS RISING AND FALLING EVENLY. RESPIRATIONS EVEN AND UNLABORED WITH NO APPARENT S/SX OF ACUTE DISTRESS. WHITE COMMUNICATION BOARD UPDATED. ALL SAFETY MEASURES IN PLACE. CALL LIGHT WITHIN REACH. WILL CONTINUE TO MONITOR.
[2022-01-16 04:00] VITALS: BP 95/55
--- NOTE | 2022-01-16 05:25 | NUR ---
ANSWERED CALL LIGHT. PATIENT C/O BACK PAIN 06/19. ENDORSED PRN IVP TO DAVID SANTORO. RESPIRATIONS EVEN AND UNLABORED WITH NO APPARENT S/SX OF ACUTE DISTRESS. ALL NEEDS MET. WHITE COMMUNICATION BOARD UPDATED. ALL SAFETY MEASURES IN PLACE. CALL LIGHT WITHIN REACH. WILL CONTINUE TO MONITOR.
[2022-01-16] MEDS: KETOROLAC 15 MG/ML VIAL IVP PRN ×3 (05:30→20:19)
--- NOTE | 2022-01-16 05:30 | NUR ---
PATIENT COMPLAINT OF BACK PAIN 06/19. PAIN MEDICATION ADMINISTERED ORDERED.
[2022-01-16 06:56] LABS: BASOPHILS % (AUTO) 0.9 % (0.0-2.0); EOSINOPHILS # (AUTO) 0.1 K/uL (0-0.4); EOSINOPHILS % (AUTO) 2.3 % (0.0-4.0); HEMATOCRIT 32.9 % (36-48); LYMPHOCYTES # (AUTO) 1.6 K/uL (2.5-16.5); LYMPHOCYTES % (AUTO) 37.6 % (20.5-51.1); MEAN CORPUSCULAR HEMOGLOBIN 31 pg (27-31); MEAN CORPUSCULAR HGB CONC 33 g/dL (33-37); MEAN CORPUSCULAR VOLUME 92.9 fL (80-94); MONOCYTES # (AUTO) 0.3 K/uL (0.8-1.0); MONOCYTES % (AUTO) 6.9 % (1.7-9.3); NEUTROPHILS # (AUTO) 2.3 K/uL (1.8-7.7); NEUTROPHILS % (AUTO) 52.3 % (42.2-75.2); PLATELET COUNT (AUTO) 329 K/uL (140-450); RED BLOOD CELL COUNT(AUTO) 3.54 MIL/uL (4.20-5.40); RED CELL DISTRIBUTION WIDTH 14.8 % (11.6-13.7); WHITE BLOOD COUNT (AUTO) 4.3 K/uL (4.8-10.8)
[2022-01-16 07:03] LABS: ANION GAP 10.9 (8-16); CARBON DIOXIDE 24.9 mmol/L (21-32); CREATININE 0.6 mg/dL (0.6-1.3); POTASSIUM 3.8 mmol/L (3.5-5.1)
--- NOTE | 2022-01-16 07:15 | NUR ---
ENDORSED PATIENT TO DAVID HAND FOR CONTINUITY OF CARE. PATIENT IS STABLE.
--- NOTE | 2022-01-16 07:25 | NUR ---
RECEIVED BEDSIDE REPORT FROM COSTUME TECHNICIAN NURSE FOR CONTINUITY OF CARE. PT IS AWAKE AND ALERT. A&OX4. ON RA WITH BREATHING UNLABORED. AMBULATORY INDEPENDENTLY. SKIN IS WARM AND DRY. BANDAGE WITH SURGICAL WOUND ON BACK OF NECK. IV IS PATENT AND INTACT. PT IS STABLE. PLAN OF CARE DISCUSSED.
[2022-01-16 08:00] VITALS: BP 91/55
[2022-01-16] MEDS: ENOXAPARIN 40 MG/0.4 ML SYR SUBQ SCH (09:04)
[2022-01-16] MEDS: ONDANSETRON 4 MG/2 ML VIAL IVP PRN (10:23)
--- NOTE | 2022-01-16 10:23 | NUR ---
PT STATED SHE WAS FEELING NAUSEOUS AND WAS GIVEN ZOFRAN FOR NAUSEA. WILL CONTINUE TO MONITOR.
--- NOTE | 2022-01-16 10:50 | NUR ---
PT STATES SHE IS HAVING PAIN IN THE ABD AND HEAD AT A SCALE OF 4/10. PT WAS GIVEN MOTRIN FOR PAIN. WILL CONTINUE OT MONITOR.
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
--- NOTE | 2022-01-16 11:14 | NUR ---
PT STILL STATING SHE HAS PAIN AT A SCALE OF 10/10. PT IS MOANING AND CRYING. PT WAS GIVEN TORADOL FOR PAIN. WILL CONTINUE TO MONITOR.
--- NOTE | 2022-01-16 11:15 | NUR ---
CONSENT SIGNED FOR CT ABD WITH CONTRAST BY DR. BUCKNER AND PT. QUESTIONNAIRE ANSWERED BY PT. WILL CALL FILE MACHINE OPERATOR WHEN PT'S PAIN AND NAUSEA IMPROVES.
[2022-01-16] MEDS ORDERED: GAUZE TP PRN (11:20)
--- NOTE | 2022-01-16 11:36 | NUR ---
PATIENT HAS BEEN SCREENED AND CATEGORIZED MODERATE NUTRITION RISK. PATIENT WILL BE SEEN WITHIN 3-5 DAYS OF ADMISSION. [address]
--- NOTE | 2022-01-16 11:49 | NUR ---
RECYCLER FORKLIFT DRIVER TRUCK DRIVER AT BEDSIDE PERFORMING ECHOCARDIOGRAM. PT STABLE AT THIS TIME. WILL MONITOR.
[2022-01-16 12:00] VITALS: BP 124/80
--- NOTE | 2022-01-16 12:49 | NUR ---
PT IS STATING SHE IS NAUSEOUS AND IN PAIN IN THE ABD/HEAD. PT WAS PREVIOUSLY GIVEN TORADOL, MOTRIN AND ZOFRAN. INFORMED DR. BUCKNER ABOUT THIS INFORMATION AND ASKED FOR ANOTHER MEDICATION TO HELP WITH NAUSEA/ PAIN.
--- NOTE | 2022-01-16 13:15 | NUR ---
STILL HAVENT RECEIVED MESSAGE BACK FROM DR. BUCKNER. CALLED EXCHANGE FOR DR. BUCKNER. THE RN PROGRESSIVE CARE UNIT STATED HE WOULD GIVE ME A CALL BACK SHORTLY.
--- NOTE | 2022-01-16 14:19 | NUR ---
RECEIVED CALL BACK FROM DR. BUCKNER. INFORMED HIM THE PT IS STILL IN PAIN AND NAUSEOUS. HE ORDERED TRAMADOL PO 50 MG Q 4HR PRN MODERATE PAIN. ALSO ORDERED REGLAN 10 MG IVP Q6HR FOR NAUSEA. WILL ADMINISTER ONCE VERIFIED.
[2022-01-16] MEDS ORDERED: METOCLOPRAMIDE 10 MG/2 ML INJ VIAL IVP PRN (14:25)
--- NOTE | 2022-01-16 14:26 | NUR ---
ASKED PT IF SHE HAS EVER RECEIVED TRAMADOL BEFORE AND SHE STATED THAT SHE WAS RECEIVING THAT FOR THE PAIN AFTER HER RECENT BACK SURGERY. SHE DENIES ANY ALLERGY TO TRAMADOL. STATES THAT CODEINE ONLY GAVE HER A RASH A REALLY LONG TIME AGO. PT STATES SHE WOULD LIKE TO TAKE THE TRAMADOL FOR PAIN.
[2022-01-16] MEDS: traMADol 50 MG TAB PO PRN (14:55)
--- NOTE | 2022-01-16 14:55 | NUR ---
PT STATES SHE IS IN PAIN IN HER HEAD/ABD AT A SCALE OF 10/10. PT ALSO STATES SHE IS NAUSEOUS. PT WAS GIVEN REGLAN AND TRAMADOL FOR PAIN. BP STABLE PRIOR TO ADMINISTRATION OF MEDICATION. WILL CONTINUE TO MONITOR.
--- NOTE | 2022-01-16 15:24 | NUR ---
CALLED MOTOR GRADER OPERATOR TO COME PLASTIC TECHNICIAN PATIENT TO COMPLETE THE CT ABD/ CT ANGIO CHEST WITH CONTRAST. SHE STATED SHE WILL BE HERE SHORTLY TO PLASTIC TECHNICIAN THE PATIENT.
[2022-01-16 16:00] VITALS: BP 119/68
--- NOTE | 2022-01-16 18:00 | NUR ---
PT IS RESTING IN SEMI FOWLERS POSITION. NO DISTRESS NOTED. PAIN IS RELIEVED, NO ANXIETY NOTED, AND NO NAUSEA. WILL CONTINUE TO MONITOR.
[2022-01-16] MEDS: CHLORHEXADINE GLUC 2% CLOTH TP SCH (18:35)
--- NOTE | 2022-01-16 19:28 | NUR ---
RECEIVED REPORT FROM AM DAVID JANE FOR CONTINUITY OF CARE. PT IS STABLE IN BED. A&OX4. ON RM AIR. NO ACURE DISTRESS. RR EVEN AND UNLABORED. GI INTACT. NO N/V. PT'S SKIN IS INTACT. PT IS AMBULATORY AND CONTINENT.POC DISCUSSED.ALL SAFETY MEASURES IN PLACE. BED LOW AND LOCKED POSITION. CALL LIGHT WITH IN REACH. ENCOURAGED TO CALL FOR ASSISTANCE. WILL CONTINUE TO MONITOR.
--- NOTE | 2022-01-16 19:30 | NUR ---
ENDORSED PT TO SUPERINTENDENT ELECTRIC POWER NURSE FOR CONTINUITY OF CARE. PT IS STABLE. PLAN OF CARE DISCUSSED.
[2022-01-16 20:00] VITALS: BP 98/58
--- NOTE | 2022-01-16 20:00 | NUR ---
PT C/O 8/10 PAIN IN THORACIC SPINE SURGICAL INCISION WITH HUONG. DRESSING D&I. TORADOL 15MG IVP GIVEN ALONG WITH AMBIEN 5MG FOR SLEEP.
[2022-01-16] MEDS: ZOLPIDEM 5 MG TAB PO PRN (20:35)
--- NOTE | 2022-01-16 21:30 | NUR ---
MEDICATION EFFECTIVE. PT SLEEPING RR EVEN AND UNLABORED WITH EQUAL CHEST RISE. NAD. CONTINUE WITH FREQ ROUNDS. ALL SAFETY MEASURES IN PLACE.
[2022-01-17] VITALS: BP 96/50
--- NOTE | 2022-01-17 02:00 | NUR ---
FREQ ROUNDS. PT AWAKE C/O 6/10 PAIN IN SURGICAL INCISION THORACIC SPINE WHEN CHANGING POSITION. ULTRAM PO GIVEN . RR EVEN AND UNLABORED. CALL LIGHT WITHIN REACH. EDUCATED PT ON PAIN AND EARLY PAIN MED EFFECTIVENESS. WILL CONTINUE TO MONITOR.
[2022-01-17] MEDS: traMADol 50 MG TAB PO PRN ×2 (02:01→08:30)
[2022-01-17 04:00] VITALS: BP 87/49
[2022-01-17 06:46] LABS: BASOPHILS % (AUTO) 0.9 % (0.0-2.0); EOSINOPHILS # (AUTO) 0.1 K/uL (0-0.4); EOSINOPHILS % (AUTO) 2.9 % (0.0-4.0); HEMOGLOBIN 11.4 g/dL (12.0-16.0); LYMPHOCYTES # (AUTO) 1.7 K/uL (2.5-16.5); LYMPHOCYTES % (AUTO) 38.8 % (20.5-51.1); MEAN CORPUSCULAR HEMOGLOBIN 31 pg (27-31); MEAN CORPUSCULAR HGB CONC 34 g/dL (33-37); MEAN CORPUSCULAR VOLUME 93.7 fL (80-94); MONOCYTES # (AUTO) 0.3 K/uL (0.8-1.0); MONOCYTES % (AUTO) 6.9 % (1.7-9.3); NEUTROPHILS # (AUTO) 2.2 K/uL (1.8-7.7); NEUTROPHILS % (AUTO) 50.5 % (42.2-75.2); PLATELET COUNT (AUTO) 347 K/uL (140-450); RED BLOOD CELL COUNT(AUTO) 3.63 MIL/uL (4.20-5.40); RED CELL DISTRIBUTION WIDTH 14.5 % (11.6-13.7); WHITE BLOOD COUNT (AUTO) 4.3 K/uL (4.8-10.8)
[2022-01-17 06:49] LABS: ANION GAP 8.8 (8-16); CARBON DIOXIDE 29.3 mmol/L (21-32); CREATININE 0.7 mg/dL (0.6-1.3); POTASSIUM 4.1 mmol/L (3.5-5.1)
--- NOTE | 2022-01-17 07:10 | NUR ---
ENDORSED REPORT TO AM NURSE FOR CONTINUITY OF CARE. PT AWAKE, ALERT, ABLE TO MAKE NEEDS KNOWN. RR EVEN AND UNLABORED. DENIES PAIN AT THIS TIME. PT HAS RFA20 G SALINE LOCK AND L HAND 22G IV. BOTH ARE FLUSHED AND PATENT. ALL SAFETY MEASURES IN PLACE. WILL CONTINUE TO MONITOR.
--- NOTE | 2022-01-17 07:15 | NUR ---
RECEIVED REPORT FROM INSTRUMENTATION AND CONTROLS DESIGNER NURSE FOR CONTINUITY OF CARE. PATIENT AWAKE ABLE TO RESPONDS VERBALLY. RESPIRATION EVEN AND NOT LABORED. DENIES PAIN AT THIS TIME. PATIENT WITH IV SITE ON HER LEFT HAND BRIE 22 AND RIGHT FA G20 AT SALINE LOCK. ALL SAFETY MEASURE IN PLACE.
[2022-01-17 08:00] VITALS: BP 107/65
--- NOTE | 2022-01-17 08:00 | NUR ---
Patient's Plan of Care was discussed and reviewed with PHILLIP Reyes
[2022-01-17] MEDS: ENOXAPARIN 40 MG/0.4 ML SYR SUBQ SCH (08:20)
--- NOTE | 2022-01-17 08:22 | NUR ---
GAVE HER LOVENOX ORDER COMPLAIN OF HEADACHE AT THIS TIME.
--- NOTE | 2022-01-17 10:41 | NUR ---
PATIENT COMPLAIN OF HEAD ACHE MEDICATED WITH TYLENOL ALSO COMPLAIN OF NAUSEA RN WILL INFORM.
--- NOTE | 2022-01-17 10:45 | NUR ---
RN GAVE ZOFRAN FOR NAUSEA. IV SITE ON RIGHT AC REMOVED DUE TO BLOCKAGE.
[2022-01-17] MEDS: ONDANSETRON 4 MG/2 ML VIAL IVP PRN (10:50)
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
[2022-01-17 12:00] VITALS: BP 104/59
--- NOTE | 2022-01-17 13:00 | NUR ---
PATIENT ON BED RESTING SHE ASKED ME WHEN IS SHE GOING TO BE DISCHARGE BECAUSE HER DOCTOR TOLD HER THAT IT'S GOING TO BE TODAY. BUT NO ORDER NOTED. LEFT MESSAGE TO DR. BUCKNER.
--- NOTE | 2022-01-17 13:45 | NUR ---
DR. BUCKNER ORDER TO DISCHARGE PATIENT. PATIENT WAS INFORM.
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
[2022-01-17 15:58] VITALS: BP 104/59
--- NOTE | 2022-01-17 16:25 | NUR ---
PATIENT ALERT ORIENTED ABLE TO MAKE NEEDS KNOWN. DISCHARGE PACKET WITH INSTRUCTION GIVEN TO PATIENT VERBALIZED UNDERSTANDING. IV SITE REMOVED WITH CATHETER INTACT. NAME BAND REMOVED. WHEELED PATIENT TO THEIR PRIVATE VEHICLE.
== END 2022-01-17 16:25 | disposition home or self-care (01) | DRG 203 ==
LOC: MED 12:58 → MTU 16:38
PROVIDERS: ADMIT Hospitalist; ATTEND Hospitalist
DX: R07.9 Chest pain, unspecified (principal); F32.A Depression, unspecified; J98.11 Atelectasis; G43.909 Migraine, unspecified, not intractable, without status migrainosus; F41.9 Anxiety disorder, unspecified; Z20.822 Contact with and (suspected) exposure to COVID-19; J45.909 Unspecified asthma, uncomplicated; M54.9 Dorsalgia, unspecified; Z88.5 Allergy status to narcotic agent; Z79.899 Other long term (current) drug therapy; V89.2XXA Person injured in unspecified motor-vehicle accident, traffic, initial encounter
CPT/HCPCS: 36415; 36556; 71045; 71275; 80048; 80053; 83735; 84100; 84484; 85025; 85379; 85610; 85730; 87081; 93005; 96361; 96374; 96375; 99285; J1200; J1650; J1885; J2270; J2405; J2765; J7030; Q9967

== ENCOUNTER 2022-02-15 10:36 | Emergency (ER) | payer OTHER ==
[~2022-02-15] VITALS: Ht 152.4 cm; Wt 89.8 kg
[~2022-02-15 10:36] MED LIST changes: +ACET-8386 PO; +BACL10TA4 PO; +CEPH-588 PO; +GABA400C PO; -LEVO750T2 PO
[2022-02-15 10:40] VITALS: BP 115/76
--- NOTE | 2022-02-15 10:43 | NUR ---
PT AMBULATED TO ER BED 6
--- NOTE | 2022-02-15 11:01 | NUR ---
46 Y/O FEMALE C/O MIGRAINE, N/V SINCE 6AM, STATES SHE TOOK HER MIGRAINE MEDS WITH NO RELIEF. PT STATES HER EYES ARE SENSITIVE TO LIGHT. PT STATES SHE HAS HAD NAUSEA BUT NO VOMITING. PT IS ALERT AND ORIENTED X4. BED LOCKED IN LOWEST POSITION, BED RAILX1. PMH: HX OF MIGRAINES ALLERGIES: CODEINE
[2022-02-15] MEDS: diphenhydrAMINE 50 MG/ML VIAL IVP ONE (11:27)
[2022-02-15] MEDS: PROCHLORPERAZINE 10 MG/2 ML VIAL IVP ONE (11:28)
[2022-02-15] MEDS: KETOROLAC 30 MG/ML VIAL IVP ONE (11:34)
[2022-02-15] MEDS: NACL 0.9% 1,000 ML IV ONE (11:36)
[2022-02-15] MEDS: ACETAMINOPHEN EXTRA STRENGTH 500 MG TAB PO ONE (12:16)
[2022-02-15] MEDS ORDERED: [UNRECOGNIZED DRUG - CODE] PO (12:18)
[2022-02-15] MEDS ORDERED: ONDA-188 SL (12:18)
[2022-02-15] MEDS: LORazepam 2 MG/ML VIAL IVP ONE (12:18)
[2022-02-15 13:21] VITALS: BP 142/78
== END 2022-02-15 13:26 | disposition home or self-care (01) ==
LOC: MED 10:36
DX: G43.909 Migraine, unspecified, not intractable, without status migrainosus (principal); R11.2 Nausea with vomiting, unspecified; Z79.899 Other long term (current) drug therapy; Z79.1 Long term (current) use of non-steroidal anti-inflammatories (NSAID); Z79.891 Long term (current) use of opiate analgesic; Z88.5 Allergy status to narcotic agent
CPT/HCPCS: 96361; 96374; 96375; 99284; J0780; J1200; J1885; J2060; J7030

== ENCOUNTER 2022-03-17 03:25 | Emergency (ER) | payer OTHER ==
[~2022-03-17] VITALS: Ht 152.4 cm; Wt 90.7 kg
[~2022-03-17 03:25] MED LIST changes: -ACET-10509 PO; -ACET-1182 PO; -BACL10TA4 PO; -CEPH-588 PO; -LACT1CAP59 PO; -LOPE-289 PO; -METR-520 PO; +ONDA-188 SL; -ONDA8TAB87 PO; +[UNRECOGNIZED DRUG - CODE] PO
[2022-03-17 03:32] VITALS: BP 132/97
--- NOTE | 2022-03-17 03:35 | NUR ---
PT SENT TO LOBBY TO WAIT FOR AVAILABLE BED. DR. QURESHI GIVEN REPORT ABOUT PT.
--- NOTE | 2022-03-17 04:01 | NUR ---
Dr. العلي examining patient.
[2022-03-17] MEDS ORDERED: KETOROLAC 30 MG/ML VIAL IVP ONE (04:05)
[2022-03-17] MEDS ORDERED: diphenhydrAMINE 50 MG/ML VIAL IVP ONE (04:05)
[2022-03-17] MEDS ORDERED: METOCLOPRAMIDE 10 MG/2 ML INJ VIAL IVP ONE (04:05)
[2022-03-17] MEDS ORDERED: NACL 0.9% 1,000 ML IV ONE (04:05)
--- NOTE | 2022-03-17 04:58 | NUR ---
Patient had abdominal pain, no relief, Dr. العلي notified.
[2022-03-17] MEDS ORDERED: MORPHINE SULFATE 4 MG/ML SYR IVP ONE ×2 (05:00→06:50)
[2022-03-17] MEDS ORDERED: ONDANSETRON 4 MG/2 ML VIAL IVP ONE ×2 (05:00→06:50)
--- NOTE | 2022-03-17 05:15 | NUR ---
PT TAKEN TO CHAIR D
[2022-03-17 05:35] LABS: ANION GAP 13.6 (8-16); CARBON DIOXIDE 23.3 mmol/L (21-32); CREATININE 0.9 mg/dL (0.6-1.3); POTASSIUM 3.9 mmol/L (3.5-5.1); TOTAL BILIRUBIN 0.1 mg/dL (0.0-1.0)
[2022-03-17] MEDS ORDERED: DICYCLOMINE HCL LIQUID 20 MG, ALUMINUM HYD/MAG/SIMETHICONE 30 ML, LIDOCAINE VISCOUS 2% ... PO ONE ×3 (05:45)
[2022-03-17] MEDS ORDERED: ONDA-188 PO (06:32)
[2022-03-17] MEDS ORDERED: ACET-8386 PO (06:32)
[2022-03-17] MEDS ORDERED: ALUMINUM HYD/MAG/SIMETHICONE 30 ML UDC ONE (06:35)
[2022-03-17] MEDS ORDERED: DICYCLOMINE HCL LIQUID 10 MG/5 ML UDC ONE (06:35)
--- NOTE | 2022-03-17 07:40 | NUR ---
PT AMBULATED TO RESTROOM. PT REPORTS FEELING BETTER. WILL GET D/C PAPERS
[2022-03-17 07:44] VITALS: BP 121/70
--- NOTE | 2022-03-17 07:44 | NUR ---
IV removed, catheter intact and site benign. Applied folded 4x4 gauze and tape to stop bleeding.
--- NOTE | 2022-03-17 07:45 | NUR ---
Patient discharged with v/s stable. Written and verbal after care instructions ABOUT NAUSEA/VOMITING AND ABDOMINAL AND GENERAL HEADACHE WITHOUT CAUSE given and explained. Patient alert, oriented and verbalized understanding of instructions. Ambulatory with steady gait. All questions addressed prior to discharge. ID band removed. Patient advised to follow up with PMD. Rx of NORCO 5-325MG AND ZOFRAN given. Patient educated on indication of medication including possible reaction and side effects. Opportunity to ask questions provided and answered.
[2022-03-17 08:31] LABS: BASOPHILS % (AUTO) 0.8 % (0.0-2.0); EOSINOPHILS # (AUTO) 0.1 K/uL (0-0.4); HEMOGLOBIN 12.3 g/dL (12.0-16.0); LYMPHOCYTES # (AUTO) 1.7 K/uL (2.5-16.5); LYMPHOCYTES % (AUTO) 33.2 % (20.5-51.1); MEAN CORPUSCULAR HEMOGLOBIN 32 pg (27-31); MEAN CORPUSCULAR HGB CONC 33 g/dL (33-37); MEAN CORPUSCULAR VOLUME 95.3 fL (80-94); MONOCYTES # (AUTO) 0.4 K/uL (0.8-1.0); MONOCYTES % (AUTO) 6.8 % (1.7-9.3); NEUTROPHILS % (AUTO) 57.2 % (42.2-75.2); PLATELET COUNT (AUTO) 314 K/uL (140-450); RED BLOOD CELL COUNT(AUTO) 3.88 MIL/uL (4.20-5.40); RED CELL DISTRIBUTION WIDTH 13.8 % (11.6-13.7); WHITE BLOOD COUNT (AUTO) 5.2 K/uL (4.8-10.8)
== END 2022-03-17 07:45 | disposition home or self-care (01) ==
LOC: MED 03:25
DX: R51.9 Headache, unspecified (principal); R11.2 Nausea with vomiting, unspecified; Z90.49 Acquired absence of other specified parts of digestive tract; Z79.899 Other long term (current) drug therapy; Z88.5 Allergy status to narcotic agent
CPT/HCPCS: 36415; 80053; 83690; 85025; 96361; 96374; 96375; 96376; 99284; J1200; J1885; J2270; J2405; J2765; J7030

== ENCOUNTER 2022-05-04 11:24 | Emergency (ER) | payer OTHER ==
[~2022-05-04] VITALS: Ht 152.4 cm; Wt 87.5 kg
[~2022-05-04 11:24] MED LIST changes: +ONDA-188 PO
[2022-05-04 11:29] VITALS: BP 106/50
[2022-05-04] MEDS ORDERED: NACL 0.9% 1,000 ML IV ONE (11:40)
[2022-05-04] MEDS ORDERED: ONDANSETRON 4 MG/2 ML VIAL IVP ONE (11:40)
[2022-05-04] MEDS ORDERED: MORPHINE SULFATE 4 MG/ML SYR IVP ONE (11:40)
[2022-05-04 13:11] LABS: BASOPHILS % (AUTO) 0.6 % (0.0-2.0); EOSINOPHILS % (AUTO) 0.7 % (0.0-4.0); HEMATOCRIT 40.2 % (36-48); HEMOGLOBIN 13.4 g/dL (12.0-16.0); LYMPHOCYTES # (AUTO) 1.1 K/uL (2.5-16.5); LYMPHOCYTES % (AUTO) 19.2 % (20.5-51.1); MEAN CORPUSCULAR HEMOGLOBIN 32 pg (27-31); MEAN CORPUSCULAR HGB CONC 33 g/dL (33-37); MEAN CORPUSCULAR VOLUME 95.2 fL (80-94); MONOCYTES # (AUTO) 0.2 K/uL (0.8-1.0); MONOCYTES % (AUTO) 3.9 % (1.7-9.3); NEUTROPHILS # (AUTO) 4.5 K/uL (1.8-7.7); NEUTROPHILS % (AUTO) 75.6 % (42.2-75.2); PLATELET COUNT (AUTO) 278 K/uL (140-450); RED BLOOD CELL COUNT(AUTO) 4.22 MIL/uL (4.20-5.40); RED CELL DISTRIBUTION WIDTH 12.8 % (11.6-13.7)
[2022-05-04 14:00] LABS: ALBUMIN 3.7 g/dL (3.4-5.0); ASPARTATE AMINOTRANSFERASE 17 U/L (15-37); CARBON DIOXIDE 21.9 mmol/L (21-32); CHLORIDE 108 mmol/L (98-107); CREATININE 0.8 mg/dL (0.6-1.3); GFR ARICAN-AMERICAN 98 mL/min (>90); GLUCOSE 102 mg/dL (74-106); POTASSIUM 3.9 mmol/L (3.5-5.1); SODIUM SERUM 141 mmol/L (136-145); TOTAL BILIRUBIN 0.3 mg/dL (0.0-1.0); UREA NITROGEN, BLOOD 10 mg/dL (7-18)
[2022-05-04] MEDS ORDERED: METH-1681 PO (14:59)
[2022-05-04] MEDS ORDERED: IBUP-2213 PO (14:59)
[2022-05-04 15:16] VITALS: BP 105/57
[2022-05-05] MEDS ORDERED: ONDA8TAB87 PO (13:44)
[2022-05-05] MEDS ORDERED: OMEP40EC24 PO (13:44)
[2022-05-05] MEDS ORDERED: IBUP-2213 PO (13:44)
[2022-05-05] MEDS ORDERED: ACET-8386 PO (13:44)
[2022-05-08] MEDS ORDERED: PANT40EC PO (17:26)
[2022-05-08] MEDS ORDERED: ONDA-188 PO (17:27)
== END 2022-05-04 15:16 | disposition home or self-care (01) ==
LOC: MED 11:24
DX: R07.9 Chest pain, unspecified (principal); Z86.73 Personal history of transient ischemic attack (TIA), and cerebral infarction without residual deficits; Z88.5 Allergy status to narcotic agent
CPT/HCPCS: 36415; 71045; 80053; 84484; 84702; 85025; 85379; 93005; 96361; 96374; 96375; 99285; J2270; J2405

== ENCOUNTER 2022-05-05 10:58 | Emergency (ER) | payer OTHER ==
[~2022-05-05] VITALS: Ht 152.4 cm; Wt 87.1 kg
[~2022-05-05 10:58] MED LIST changes: +METH-1681 PO
[2022-05-05 11:06] VITALS: BP 108/64
[2022-05-05] MEDS ORDERED: KETOROLAC 60 MG/2 ML VIAL IM ONE (11:20)
[2022-05-05] MEDS ORDERED: ONDANSETRON 4 MG ODT PO ONE (11:20)
--- NOTE | 2022-05-05 11:20 | NUR ---
46YO FEMALE PT C/O BURNING 10/10 EPIGASTRIC PAIN XTHIS MORNING. PT STATES SUDDEN ONSET ALONG W/ HEADACHE AND NAUSEA/ VOMITING X5 , NOTES BLOOD ON LAST EPISODE. DNIES DIARRHEA, CHILLS OR FEVER. ALSO C/O "LIP TWITCHING". DENIES RELIEF AFTER TAKING PEPTO. ABDOMEN NON DISTENDED OR TENDER , ACTIVE X4. PT AAOX4 , IN VISIBLE DISCOMFORT W/ HYPERVENTILATING. HOB POSIITONED PER COMFORT, BED AT LOWEST POSITION, BED RAIL UP X2. HX: ASTHMA ALLERGIES: CODEINE
--- NOTE | 2022-05-05 11:56 | NUR ---
ERMD AT BEDSIDE FOR EVALUATION
[2022-05-05] MEDS ORDERED: DICYCLOMINE HCL LIQUID 20 MG, ALUMINUM HYD/MAG/SIMETHICONE 30 ML, LIDOCAINE VISCOUS 2% ... PO ONE ×3 (12:00)
[2022-05-05] MEDS ORDERED: MORPHINE SULFATE 4 MG/ML SYR IM ONE (12:00)
[2022-05-05] MEDS ORDERED: DICYCLOMINE HCL LIQUID 10 MG/5 ML UDC ONE (12:49)
[2022-05-05] MEDS ORDERED: ALUMINUM HYD/MAG/SIMETHICONE 30 ML UDC ONE (12:49)
[2022-05-05] MEDS ORDERED: ACET-8386 PO (13:44)
[2022-05-05] MEDS ORDERED: IBUP-2213 PO (13:44)
[2022-05-05] MEDS ORDERED: ONDA8TAB87 PO (13:44)
[2022-05-05] MEDS ORDERED: OMEP40EC24 PO (13:44)
[2022-05-05 14:00] VITALS: BP 110/71
--- NOTE | 2022-05-05 14:00 | NUR ---
Patient discharged with v/s stable. Written and verbal after care instructions FOR N/V AND ABDOMINAL PAIN given and explained. Patient alert, oriented and verbalized understanding of instructions. Ambulatory with steady gait. All questions addressed prior to discharge. ID band removed. Patient advised to follow up with PMD. Rx of HYDROCODONE, IBUPROFEN, OMEPRAZOLE AND ZOFRAN given.Opportunity to ask questions provided and answered.
--- NOTE | 2022-05-05 14:04 | NUR ---
The patient's care was reviewed and supervised by ED Agency Nurse 9, RN, RN.
[2022-05-08] MEDS ORDERED: PANT40EC PO (17:26)
[2022-05-08] MEDS ORDERED: ONDA-188 PO (17:27)
== END 2022-05-05 14:00 | disposition home or self-care (01) ==
LOC: MED 10:58
DX: R10.13 Epigastric pain (principal); R11.2 Nausea with vomiting, unspecified; Z79.899 Other long term (current) drug therapy; Z86.73 Personal history of transient ischemic attack (TIA), and cerebral infarction without residual deficits; Z88.5 Allergy status to narcotic agent
CPT/HCPCS: 81002; 81025; 96372; 99284; J1885; J2270; Q0162

== ENCOUNTER 2022-05-31 10:44 | Emergency (ER) | payer OTHER ==
[~2022-05-31] VITALS: Ht 152.4 cm; Wt 85.3 kg
[~2022-05-31 10:44] MED LIST changes: -ACET-8386 PO; -FAMO-90 PO; -GABA400C PO; -IBUP-2213 PO; +NORC10 PO; +OMEP20EC11 PO; -ONDA-188 SL; -[UNRECOGNIZED DRUG - CODE] PO
[2022-05-31 10:48] VITALS: BP 128/65
--- NOTE | 2022-05-31 10:54 | NUR ---
PT AMB TO BED 8.
[2022-05-31] MEDS ORDERED: KETOROLAC 60 MG/2 ML VIAL IM ONE (12:15)
--- NOTE | 2022-05-31 12:45 | NUR ---
Lab at bedside.
[2022-05-31 13:39] LABS: BASOPHILS % (AUTO) 0.8 % (0.0-2.0); EOSINOPHILS % (AUTO) 0.7 % (0.0-4.0); HEMATOCRIT 35.7 % (36-48); HEMOGLOBIN 12.2 g/dL (12.0-16.0); LYMPHOCYTES # (AUTO) 0.8 K/uL (2.5-16.5); LYMPHOCYTES % (AUTO) 20.4 % (20.5-51.1); MEAN CORPUSCULAR HEMOGLOBIN 32 pg (27-31); MEAN CORPUSCULAR HGB CONC 34 g/dL (33-37); MEAN CORPUSCULAR VOLUME 94.7 fL (80-94); MONOCYTES # (AUTO) 0.2 K/uL (0.8-1.0); MONOCYTES % (AUTO) 4.4 % (1.7-9.3); NEUTROPHILS # (AUTO) 2.8 K/uL (1.8-7.7); NEUTROPHILS % (AUTO) 73.7 % (42.2-75.2); PLATELET COUNT (AUTO) 281 K/uL (140-450); RED BLOOD CELL COUNT(AUTO) 3.77 MIL/uL (4.20-5.40); RED CELL DISTRIBUTION WIDTH 13.8 % (11.6-13.7); WHITE BLOOD COUNT (AUTO) 3.8 K/uL (4.8-10.8)
[2022-05-31] MEDS ORDERED: HYDR25SU91 RC (14:02)
[2022-05-31 14:15] VITALS: BP 106/64
--- NOTE | 2022-05-31 14:15 | NUR ---
Patient discharged with v/s stable. Written and verbal after care instructions given. Patient alert, oriented and verbalized understanding of instructions. Ambulatory with steady gait. All questions addressed prior to discharge. ID band removed. Patient advised to follow up with PMD. Rx of Hydrocortisone Acetate given. Opportunity to ask questions provided and answered.
--- NOTE | 2022-05-31 14:16 | NUR ---
The patient's care was reviewed and supervised by Dana Romero RN.
== END 2022-05-31 14:15 | disposition home or self-care (01) ==
LOC: MED 10:44
DX: N93.8 Other specified abnormal uterine and vaginal bleeding (principal); Z88.5 Allergy status to narcotic agent
CPT/HCPCS: 36415; 81002; 81025; 85025; 96372; 99283; J1885

== ENCOUNTER 2022-06-12 09:46 | Emergency (ER) | payer OTHER ==
[~2022-06-12] VITALS: Ht 152.4 cm; Wt 83.5 kg
[~2022-06-12 09:46] MED LIST changes: +HYDR25SU91 RC
[2022-06-12 10:07] VITALS: BP 95/66
--- NOTE | 2022-06-12 10:11 | NUR ---
PATIENT AMBULATED TO BED 12.
--- NOTE | 2022-06-12 10:47 | NUR ---
46Y/O FEMALE BIB SELF C/O 05/20 EPIGASTRIC PAIN, "CLENCHING" HEADACHE, N/V X YESTERDAY. PER PT SHE TOOK SOME ZOFRAN AND PEPTO WITH MODERATE RELIEF, DENIES DIARRHEA OR RADIATION. PMH: PEPTIC ULCER, TIA IN SEP 2021, HERNIA
--- NOTE | 2022-06-12 12:12 | NUR ---
PT STATES THAT HER GI DOCTOR IS ABLE TO SEE HER TODAY, WALKED OUT OF THE ED. DR WILSON MADE AWARE. PATIENT LEFT WITHOUT BEING SEEN BY DR. WILSON. NO FURTHER CARE PROVIDED FOR PATIENT.
== END 2022-06-12 12:12 | disposition left against medical advice (07) ==
LOC: MED 09:46
DX: R10.13 Epigastric pain (principal); R11.2 Nausea with vomiting, unspecified; R51.9 Headache, unspecified; Z53.21 Procedure and treatment not carried out due to patient leaving prior to being seen by health care provider
CPT/HCPCS: 81002; 81025

== ENCOUNTER 2022-07-06 08:29 | Emergency (ER) | payer OTHER ==
[~2022-07-06] VITALS: Ht 154.9 cm; Wt 74.8 kg
[2022-07-06 08:31] VITALS: BP 116/77
--- NOTE | 2022-07-06 08:35 | NUR ---
PT AMBULATED TO ROOM 5
--- NOTE | 2022-07-06 08:56 | NUR ---
46YO FEMALE PT C/O 06/19 MIGRAINE HEADACHE AND BURNING EPIGASTRIC PAIN [id number]. REPORTS SUDDEN ONSET AT 4AM ALONG WITH N/V X4, DENIES BLOOD. DENIES RELIEF AFTER TAKING RX ABUTALBITAL . ABDOMEN NON TENDER OR DISTENED. DENIES CHEST PAIN, DIARRHEA, FEVER, CHILLS OR SOB. PT AAOX4, HOB POSITIONED PER COMFORT. HX:HERNIA ALLERGIES:CODEINE
[2022-07-06] MEDS ORDERED: PROCHLORPERAZINE 10 MG/2 ML VIAL IM ONE (09:00)
[2022-07-06] MEDS ORDERED: KETOROLAC 60 MG/2 ML VIAL IM ONE (09:00)
--- NOTE | 2022-07-06 09:57 | NUR ---
46/F PRESENTS TO ED WITH C/O 10/10 MIGRAINE HEADACHE AND EPIGASTRIC PAIN X5 HOURS. PATIENT REPORTS N/V X4 EPISODES TODAY, REPORTS NO RELIEF AFTER TAKING MEDS FOR SYMPTOMS. PATIENT DENIES SOB, DIARRHEA, FEVERS, CHILLS.
[2022-07-06] MEDS ORDERED: fentaNYL citrate 0.05 MG/ML VIAL IM ONE (10:50)
[2022-07-06] MEDS ORDERED: TRAM50TA1 PO (11:29)
[2022-07-06 11:44] VITALS: BP 127/90
--- NOTE | 2022-07-06 11:44 | NUR ---
Patient discharged with v/s stable. Written and verbal after care instructions FOR MIGRAINE HEADACHE given and explained. Patient alert, oriented and verbalized understanding of instructions. Ambulatory with steady gait. All questions addressed prior to discharge. ID band removed. Patient advised to follow up with PMD. Rx of TRAMADOL AND ZOFRAN given. Opportunity to ask questions provided and answered.
[2022-07-06] MEDS ORDERED: ONDA-188 SL (11:51)
--- NOTE | 2022-07-06 12:04 | NUR ---
The patient's care was reviewed and supervised by Sabrina Guerrero RN.
== END 2022-07-06 12:11 | disposition home or self-care (01) ==
LOC: MED 08:29
DX: G43.909 Migraine, unspecified, not intractable, without status migrainosus (principal); K21.9 Gastro-esophageal reflux disease without esophagitis; Z86.73 Personal history of transient ischemic attack (TIA), and cerebral infarction without residual deficits; Z79.899 Other long term (current) drug therapy; Z88.5 Allergy status to narcotic agent
CPT/HCPCS: 96372; 99285; J0780; J1885; J3010

== ENCOUNTER 2022-08-27 09:05 | Emergency (ER) | payer OTHER ==
[~2022-08-27] VITALS: Ht 152.4 cm; Wt 83.0 kg
[~2022-08-27 09:05] MED LIST changes: +ONDA-188 SL; +TRAM-748 PO
[2022-08-27 09:11] VITALS: BP 106/82
--- NOTE | 2022-08-27 09:16 | NUR ---
PT AMBULATED TO ER BED 11
[2022-08-27] MEDS ORDERED: PROCHLORPERAZINE 10 MG/2 ML VIAL IM ONE (09:20)
[2022-08-27] MEDS ORDERED: KETOROLAC 30 MG/ML VIAL IM ONE (09:20)
--- NOTE | 2022-08-27 09:34 | NUR ---
PT TAKEN TO CT
--- NOTE | 2022-08-27 10:30 | NUR ---
47 Y/O FEMALE BIB SELF C/O NV, HEADACHE X1DAY ALLERGY; CODEINE PMH: MIGRAINE, TIA 2021
[2022-08-27] MEDS ORDERED: ONDA-188 PO (10:34)
--- NOTE | 2022-08-27 10:51 | NUR ---
Patient discharged with v/s stable. Written and verbal after care instructions ABOUT MIGRAINE HEADACHE given and explained. Patient alert, oriented and verbalized understanding of instructions. Ambulatory with steady gait. All questions addressed prior to discharge. ID band removed. Patient advised to follow up with PMD. Rx of ZOFRAN ODT given. Patient educated on indication of medication including possible reaction and side effects. Opportunity to ask questions provided and answered.
== END 2022-08-27 10:51 | disposition home or self-care (01) ==
LOC: MED 09:05
DX: G43.909 Migraine, unspecified, not intractable, without status migrainosus (principal); R11.0 Nausea; K21.9 Gastro-esophageal reflux disease without esophagitis; Z79.899 Other long term (current) drug therapy; Z88.5 Allergy status to narcotic agent; Z86.73 Personal history of transient ischemic attack (TIA), and cerebral infarction without residual deficits
CPT/HCPCS: 70450; 81025; 96372; 99284; J0780; J1885; Q0163

== ENCOUNTER 2022-10-23 08:07 | Emergency (ER) | payer OTHER ==
[~2022-10-23] VITALS: Ht 152.4 cm; Wt 84.4 kg
[2022-10-23 08:16] VITALS: BP 115/81
--- NOTE | 2022-10-23 08:20 | NUR ---
Dr. Fisher evaluating patient at bedside.
--- NOTE | 2022-10-23 08:20 | NUR ---
Patient ambulated to bed 6.
[2022-10-23] MEDS ORDERED: ONDANSETRON 4 MG/2 ML VIAL IVP ONE (08:25)
[2022-10-23] MEDS ORDERED: KETOROLAC 15 MG/ML VIAL IVP ONE (08:25)
[2022-10-23] MEDS ORDERED: NACL 0.9% 1,000 ML IV ONE (08:25)
[2022-10-23 09:38] LABS: BASOPHILS % (AUTO) 0.5 % (0.0-2.0); EOSINOPHILS # (AUTO) 0.1 K/uL (0-0.4); EOSINOPHILS % (AUTO) 1.1 % (0.0-4.0); HEMATOCRIT 39.7 % (36-48); HEMOGLOBIN 13.5 g/dL (12.0-16.0); LYMPHOCYTES # (AUTO) 1.2 K/uL (2.5-16.5); LYMPHOCYTES % (AUTO) 20.8 % (20.5-51.1); MEAN CORPUSCULAR HEMOGLOBIN 32 pg (27-31); MEAN CORPUSCULAR HGB CONC 34 g/dL (33-37); MEAN CORPUSCULAR VOLUME 95.5 fL (80-94); MONOCYTES # (AUTO) 0.3 K/uL (0.8-1.0); MONOCYTES % (AUTO) 5.4 % (1.7-9.3); NEUTROPHILS # (AUTO) 4.2 K/uL (1.8-7.7); NEUTROPHILS % (AUTO) 72.2 % (42.2-75.2); PLATELET COUNT (AUTO) 313 K/uL (140-450); RED BLOOD CELL COUNT(AUTO) 4.16 MIL/uL (4.20-5.40); RED CELL DISTRIBUTION WIDTH 13.2 % (11.6-13.7); WHITE BLOOD COUNT (AUTO) 5.9 K/uL (4.8-10.8)
[2022-10-23] MEDS ORDERED: ONDANSETRON 4 MG/2 ML VIAL ONE (10:03)
[2022-10-23] MEDS ORDERED: KETOROLAC 15 MG/ML VIAL ONE (10:04)
--- NOTE | 2022-10-23 10:10 | NUR ---
Pt endorsed gen body pain of 6/10. Non-pharm interventions ineffective.
[2022-10-23 10:51] LABS: ALBUMIN 4.1 g/dL (3.4-5.0); ANION GAP 12.8 (8-16); ASPARTATE AMINOTRANSFERASE 15 U/L (15-37); CARBON DIOXIDE 25.3 mmol/L (21-32); CHLORIDE 108 mmol/L (98-107); CREATININE 0.7 mg/dL (0.6-1.3); GFR ARICAN-AMERICAN 114 mL/min (>90); GLUCOSE 115 mg/dL (74-106); POTASSIUM 4.1 mmol/L (3.5-5.1); SODIUM SERUM 142 mmol/L (136-145); TOTAL BILIRUBIN 0.3 mg/dL (0.0-1.0); UREA NITROGEN, BLOOD 10 mg/dL (7-18)
[2022-10-23] MEDS ORDERED: DICYCLOMINE HCL LIQUID 20 MG, ALUMINUM HYD/MAG/SIMETHICONE 30 ML, LIDOCAINE VISCOUS 2% ... PO ONE ×3 (11:10)
[2022-10-23] MEDS ORDERED: DICYCLOMINE HCL LIQUID 10 MG/5 ML UDC ONE (11:20)
[2022-10-23] MEDS ORDERED: ALUMINUM HYD/MAG/SIMETHICONE 30 ML UDC ONE (11:20)
[2022-10-23] MEDS ORDERED: NAPR-54 PO (13:32)
[2022-10-23] MEDS ORDERED: ONDA-188 PO (13:32)
[2022-10-23 13:52] VITALS: BP 103/70
--- NOTE | 2022-10-23 13:52 | NUR ---
Patient discharged with v/s stable. Written and verbal after care instructions given and explained. Patient alert, oriented and verbalized understanding of instructions. Ambulatory with steady gait. All questions addressed prior to discharge. ID band removed. Patient advised to follow up with PMD. Rx of ZOFRAN, NAPROXEN (SENT) given. Patient educated on indication of medication including possible reaction and side effects. Opportunity to ask questions provided and answered. COPY OF LABS AND IMAGING GIVEN
--- NOTE | 2022-10-23 13:53 | NUR ---
The patient's care was reviewed and supervised by Chyna Evangelisat, RN, RN.
== END 2022-10-23 13:52 | disposition home or self-care (01) ==
LOC: MED 08:07
DX: R07.89 Other chest pain (principal); Z20.822 Contact with and (suspected) exposure to COVID-19; G43.909 Migraine, unspecified, not intractable, without status migrainosus; K21.9 Gastro-esophageal reflux disease without esophagitis; Z79.899 Other long term (current) drug therapy; Z88.5 Allergy status to narcotic agent; Z98.890 Other specified postprocedural states; Z86.73 Personal history of transient ischemic attack (TIA), and cerebral infarction without residual deficits
CPT/HCPCS: 36415; 71045; 80053; 81025; 84484; 85025; 85379; 87426; 93005; 96361; 96374; 96375; 99285; J1885; J2405; J7030